=== PATIENT | male | born 1975 | race Caucasian/White ===

== ENCOUNTER → 2017-12-05 | Outpatient (CLI) | payer OTHER | LOC: COL.RAD 12:52 | DX: M50.21 Other cervical disc displacement, high cervical region (principal); M50.223 Other cervical disc displacement at C6-C7 level; M47.812 Spondylosis without myelopathy or radiculopathy, cervical region ==

== ENCOUNTER → 2020-09-26 | Outpatient (CLI) | payer OTHER | LOC: ZCOL.LAB 17:12 | DX: Z20.828 Contact with and (suspected) exposure to other viral communicable diseases (principal) ==